=== PATIENT | male | born 1975 | race Caucasian/White ===

== ENCOUNTER 2019-08-17 12:51 | Inpatient (IN) | payer SELFPAY ==
[2019-08-17] VITALS (11 sets, daily range): BP systolic 110–125; BP diastolic 64–85; PULSE 75–108; RESP 16–18; TEMP 37.2; O2SAT 96–100; BMI 27.4
--- NOTE | ~2019-08-17 | US_ITS ---
EXAMINATION: US right upper quadrant DATE: 08/18/2019 17:01 INDICATION: Elevated liver function tests TECHNIQUE: Multiple grayscale and Doppler ultrasound images of the abdomen were obtained. COMPARISON: None available FINDINGS: The head and and body of the pancreas are normal. The pancreatic tail is obscured by bowel gas. The liver is normal with normal echogenicity and echotexture. No surface nodularity. Normal hepa topetal flow in the main portal vein. The gallbladder is normal with no abnormal wall thickening, per icholecystic fluid or stones. The normal common bile duct measures 4 mm. There was no sonographic Mur phy sign. IMPRESSION: 1. Normal sonographic study of the gallbladder. Reviewed, dictated and finalized at location A.
--- NOTE | 2019-08-17 13:32 | ED.OVERDOSE ---
HPI - Overdose General Chief Complaint: Psychiatric Symptoms Stated Complaint: OD GABAPENTIN Time Seen by Provider: 08/17/19 13:26 Source: patient Mode of arrival: EMS Limitations: no limitations History of Present Illness HPI Narrative: Patient is a 44-year-old male presents to the emergency department with complaint of polysubstance overdose. Patient called EMS because he had taken at least 20 600 mg gabapentin tablets throughout the morning. Patient also admits to taking an unknown amount of his hydrocodone as well as Ambien this morning as well. Patient has chronic back pain and was recently put on disability. Patient states he is not able to go back to work and has been feeling very depressed and does not know what to do. Patient is tearful and states he has been feeling very depressed. He denies any prior psychiatric illness or suicide attempts. Patient was trying to harm himself and has been thinking of suicide. complaint: intentional overdose Onset (ago): hour(s) Intent: suicide attempt How Overdose Was Discovered: called 911 Context: Intentional Overdose: other (Medical problems) Associated symptoms: depression Treatments Prior to Arrival: none Related Data Home Medications Medication Instructions Recorded Confirmed gabapentin 600 mg PO TID 08/17/19 08/17/19 hydrocodone-acetaminophen 7.5 - 325 tablet PO Q6H PRN 08/17/19 08/17/19 zolpidem 10 mg PO HS PRN 08/17/19 08/17/19 Allergies Allergy/AdvReac Type Severity Reaction Status Date / Time Penicillins Allergy Unknown Verified 08/17/19 18:11 Review of Systems Review of Systems: All systems reviewed & are unremarkable except as noted in HPI and below PMFSH Past Medical History Medical History (Updated 08/17/19 @ 20:16 by Deborah Diaz MD) Chronic low back pain Chronic prescription opiate use Surgical History Surgical History (Updated 08/17/19 @ 13:42 by Deborah Diaz MD) History of back surgery History of orthopedic surgery Multiple Social History Social History (Updated 08/17/19 @ 16:57 by Tita Guzmán PA-C) Social History: The patient lives in [place], [place]. Smoking status: Never smoker Alcohol intake: unknown Alcohol use details: Infrequent Substance use: never Substance use type: does not use Gender identity (if verbalized by the patient): Male Spiritual care concerns: No Exam Const: General: cooperative, no acute distress and alert Nutritional Appearance: well nourished Orientation/consciousness: patient oriented x3 Limitations: no limitations HENMT: Mouth: Yes lip normal and Yes moist mucous membranes Eyes: Conjunctivae: conjunctivae normal Pupils: Equal, round and reactive pupils present Resp: Effort & Inspection: normal respiratory effort Auscultation: clear to auscultation bilaterally Cardio: Rate: regular rate Rhythm: regular rhythm GI: GI Palp: Yes Soft to palpation and No Tenderness to palpation present (GI) Auscultation: normal bowel sounds Skin: General skin exam: normal color and no rashes or lesions noted Neuro: General: patient oriented x3 Cognition (Neuro): normal cognition Speech: normal speech Extrem: General: normal to inspection, full ROM and no clubbing, cyanosis or edema Psych: Appearance: well kempt Mental Status: mental status grossly normal Affect: Sad affect present (Tearful) Attitude: cooperative Course Course Emergency Course: Patient will be admitted to ICU for polysubstance overdose. Patient's acetaminophen level is not detectable, but he does have elevation of his liver enzymes. Patient was significant amount of his [place] prescription missing which should be a month supply and is now gone after 2 weeks. The same applies to his Ambien prescription. It is unclear when patient may have taken these medications, as he is very vague about how much he took when. Patient does however appear to have taken 24 tablets of gabapentin today which wa
--- NOTE | 2019-08-17 13:33 | ECG_ITS ---
Measurements Intervals [place] Rate: 86 P: 42 UT: 168 QRS: 12 QRSD: 78 T: 50 QT: 343 QTc: 412 Interpretive Statements SINUS RHYTHM NORMAL ECG Electronically Signed On 08-17-2019 13:54:03 CDT by Ranjeet Yeung D.O.
[2019-08-17 13:44] LABS: Basophils Percent Auto 0.7 % (0.2-1.2); Eosinophils Absolute Auto 0.1 K/mm3 (0-0.3); Eosinophils Percent Auto 2.3 % (0-4.4); Hematocrit 42.7 % (42.0-52.0); Hemoglobin 13.9 g/dL (14.0-18.0); Immature Granulocyte Absolute 0.01 K/mm3 (0.00-0.031); Immature Granulocyte Percent A 0.3 % (0-0.5); Lymphocytes Absolute Auto 1.24 K/mm3 (0.9-3.2); Lymphocytes Percent Auto 41.3 % (18.3-44.2); Mean Corpuscular HGB Conc 32.6 g/dl (32-36); Mean Corpuscular Hemoglobin 29.3 pg (26-34); Mean Corpuscular Volume 90.1 fl (80-100); Mean Platelet Volume 9.3 fl (7.4-10.4); Monocytes Absolute Auto 0.4 K/mm3 (0.1-0.6); Neutrophils Absolute Auto 1.3 K/mm3 (1.3-6.7); Neutrophils Percent Auto 42.4 % (45.5-73.1); Platelet Count Result 153 k/mm3 (150-375); Red Blood Count 4.74 M/mm3 (4.6-6.20); Red Cell Distribution Width 14.6 % (11.5-14.5)
--- NOTE | 2019-08-17 13:57 | PC.NURSE ---
1352 called poison control, was told: Gabapentin peaks in 2 hours from ingestion 5-7 hours half-life monitor for [employer] depression overdose is usually well tolerated check APAP, salicylate, renal function treat symptoms with supportive care benzos for seizures as needed Pill count: filled 08/03/19: zolpidem 10 mg- 30 tabs-- none left hydrocodone/APAP 7.5/325 mg- 120 tabs-- none left filled 08/16/19: gabapentin 600 mg- 90 tabs -- 66 left (took 24 today)
[2019-08-17 14:07] LABS: Acetaminophen < 10 ug/mL (10-30); Salicylate < 1.0 mg/dL (2-20)
[2019-08-17 14:08] LABS: Ethanol < 10 mg/dL (<10)
[2019-08-17 14:17] LABS: Albumin Level 4.1 g/dL (3.5-5.1); Alkaline Phosphatase 165 U/L (38-126); Bilirubin,Total 1.1 mg/dL (0.2-1.3); Blood Urea Nitrogen 10 mg/dL (9-20); Calcium 9.2 mg/dL (8.4-10.2); Carbon Dioxide 33 mmol/L (22-30); Chloride 104 mmol/L (98-107); Estimated CRCL calculation 104 ml/min; Estimated Glomerular Filt Rate > 60; Glucose 86 mg/dL (75-110); Potassium 3.8 mmol/L (3.4-5.0); Sodium 142 mmol/L (137-145)
[2019-08-17 14:35] LABS: Thyroid Stimulating Hormone 0.879 uIU/mL (0.465-4.680)
[2019-08-17 14:48] LABS: Add Urine Microscopic? YES; Appearance Urine Clear (Clear); Bilirubin Urine Negative (Negative); Blood Urine Negative (Negative); Color Urine Yellow (Yellow); Glucose Urine UA Negative (Negative); Ketones Urine Negative (Negative); Leukocyte Esterase Ur Negative LEU/UL (Negative); Nitrate Urine Negative (Negative); Protein Urine Negative (Negative); RBC Urine 0-2 /hpf (0-2); Specific Grav Ur 1.012 (1.001-1.035); WBC Urine 0-3 /hpf
[2019-08-17 15:00] LABS: Amphetamine Screen Urine Negative (Negative); Barbiturate Screen Urine Negative (Negative); Benzodiazepines Screen Urine Negative (Negative); Cannabinoid Screen Urine Negative (Negative); Cocaine Screen Urine Negative (Negative); Methadone Screen Urine Negative (Negative); Opiate Screen Urine Negative (Negative); Phencyclidine Screen Urine Negative (Negative)
[2019-08-17 16:19] LABS: Aspartate Amino Transferase 934 U/L (17-59)
[2019-08-17 16:20] LABS: Alanine Aminotransferase 1223 U/L (4-50)
[2019-08-17] MEDS: LACTATED RINGERS 1,000 ML 999 ML IV CONT (16:57)
--- NOTE | 2019-08-17 17:00 | PM.IMHP ---
H&P: HPI History of Present Illness Chief complaint: Intentional overdose. Narrative: Rambo Worley is a 44-year-old male with chronic low back pain who presented to the emergency department earlier today via EMS from home for evaluation of an intentional polysubstance overdose. Over the course of the morning, he admits to taking at least 20, 600 milligram gabapentin tablets in addition to an unknown amount of hydrocodone and zolpidem. He took these medications intentionally in an attempt to harm himself, and he does admit that he has been thinking of suicide recently. With further questioning, it sounds like he has a lot of stressors in his life right now. He and his are currently going through a divorce, and she has not allowed him to see their 2 children, aged 5 and 9 years old. He is worried about the children, and states that their mother is an alcoholic. Since he and his have been , he has been staying with an ex-girlfriend, however he has been staying at a local motel the past 3 nights for unclear reasons. He also suffers from chronic back pain and was recently awarded disability, and that also has him depressed that he is no longer able to work. He goes on to say that he has been thinking about suicide probably for the last 6 months or so. At the time my evaluation his main complaint is of the inability to sleep over the past several days and bifrontal headache. No previous history of suicide attempt. He denies fever, chills, and sweats. No recent cold or flu symptoms. He denies chest pain and shortness of breath. No cough. No recent travel or sick contacts. Review of Systems Review of Systems: Narrative: Twelve systems were reviewed with pertinent positives and negatives as per HPI. Patient had gastric bypass surgery several years ago, going from 340 to 185 pounds. He reports carpal tunnel syndrome of the left hand, and is awaiting surgery for that. No history of liver disease. Denies exposure to hepatitis and concerns for such. Denies ingestion of Tylenol. Does not drink alcohol. Except as documented, all other systems were reviewed and are negative. [facility] Past Medical History Medical History (Updated 08/17/19 @ 22:15 by Tita Guzmán PA-C) Chronic low back pain Related to a work accident. Chronic prescription opiate use Surgical History Surgical History (Updated 08/17/19 @ 22:18 by Tita Guzmán PA-C) History of arthroscopy of left shoulder History of back surgery X5. History of gastric bypass History of hip surgery What sounds like left hip fracture with screws. Family History Family History (Updated 08/17/19 @ 22:15 by Tita Guzmán PA-C) Mother COPD (chronic obstructive pulmonary disease) Father Diabetes mellitus Social History Social History (Updated 08/17/19 @ 22:17 by Tita Guzmán PA-C) Social History: He is originally from [place], but moved to the area with his several years ago. He and his for currently in the middle of a divorce. They have 2 young children, ages 5 and 9. He is a lifelong nonsmoker and denies alcohol and drug use. He was recently put on disability due to chronic back problems and pain related to a work accident. He designates his brother, Patrick Worley, as his surrogate decision maker. Alcohol use details: Infrequent Spiritual care concerns: No Meds Home Medications and Allergies Home Medications Medication Instructions Recorded Confirmed Type gabapentin 600 mg PO TID 08/17/19 08/17/19 History hydrocodone-acetaminophen 7.5 - 325 tablet PO Q6H PRN 08/17/19 08/17/19 History zolpidem 10 mg PO HS PRN 08/17/19 08/17/19 History Allergies Allergy/AdvReac Type Severity Reaction Status Date / Time Penicillins Allergy Unknown Verified 08/17/19 18:11 Vital Signs Vital Signs - 24 hr 08/17/19 12:53 08/17/19 14:00 08/17/19 15:00 Temperature 98.9 F Pulse Rate 108 H 83 76 Respirato
[2019-08-17 17:29] LABS: Creatine Kinase 24 U/L (55-170)
[2019-08-17 17:30] LABS: Partial Thromboplastin Time 29.7 SECONDS (22.3-36.8)
--- NOTE | 2019-08-17 17:38 | ADMGEN ---
This patient, Rambo Worley, was admitted to Intensive Care Unit-7 at 1725. Patient/family oriented to hospital policies and general routines including ID bracelet, bed and alarms, visiting hours, pain management, procedures, bathroom and other care routines, personal items, smoking policy, room service/diet, and visiting hours. Valuables list has been completed. Information on how to activate the Rapid Response Team has been discussed. Patient/Family are encouraged to report perceived risks to care and to ask questions if they do not understand what they are told or what they should do.
[2019-08-17 19:15] LABS: Acetaminophen < 10 ug/mL (10-30)
[2019-08-17 19:44] LABS: Creatine Kinase 23 U/L (55-170)
[2019-08-17 19:55] LABS: HAV RESULT Negative (Negative); Hepatitis B Core IgM Result Negative (Negative); Hepatitis B Surface Antigen Negative (Negative)
[2019-08-17 20:11] LABS: Hepatitis C Virus Antibody Reactive (Negative)
[2019-08-17 20:22] LABS: Partial Thromboplastin Time 27.1 SECONDS (22.3-36.8)
[2019-08-17] MEDS: LACTATED RINGERS 1,000 ML 150 ML IV CONT (20:23)
[2019-08-17 20:37] LABS: Prothrombin Time 13.3 Seconds (11.1-14.7)
[2019-08-17 21:11] LABS: Prothrombin Time 13.2 Seconds (11.1-14.7)
--- NOTE | 2019-08-17 21:45 | PC.NURSE ---
Spoke with poison control. Recommend Acetadote IV. Spoke with Dr. Gonsales. Ashley with Acetadote IV
--- NOTE | 2019-08-17 23:20 | PC.NURSE ---
Patient alert and oriented and cooperative, however refuses to urinate in urinal. Unable to measure voided urine.
[2019-08-18] VITALS (10 sets, daily range): BP systolic 97–128; BP diastolic 68–82; PULSE 69–98; RESP 10–22; TEMP 36.6–36.9; O2SAT 96–100
[2019-08-18 04:48] LABS: Basophils Percent Auto 0.9 % (0.2-1.2); Eosinophils Absolute Auto 0.1 K/mm3 (0-0.3); Eosinophils Percent Auto 2.1 % (0-4.4); Hemoglobin 13.7 g/dL (14.0-18.0); Immature Granulocyte Absolute 0.01 K/mm3 (0.00-0.031); Immature Granulocyte Percent A 0.3 % (0-0.5); Lymphocytes Absolute Auto 1.25 K/mm3 (0.9-3.2); Lymphocytes Percent Auto 38.3 % (18.3-44.2); Mean Corpuscular HGB Conc 32.6 g/dl (32-36); Mean Corpuscular Hemoglobin 29.3 pg (26-34); Mean Corpuscular Volume 89.7 fl (80-100); Mean Platelet Volume 10.1 fl (7.4-10.4); Monocytes Absolute Auto 0.4 K/mm3 (0.1-0.6); Neutrophils Absolute Auto 1.5 K/mm3 (1.3-6.7); Neutrophils Percent Auto 47.4 % (45.5-73.1); Platelet Count Result 160 k/mm3 (150-375); Red Blood Count 4.68 M/mm3 (4.6-6.20); Red Cell Distribution Width 14.4 % (11.5-14.5); White Blood Count 3.3 K/mm3 (4.5-10.0)
[2019-08-18 05:11] LABS: INR 1.1; Prothrombin Time 14.3 Seconds (11.1-14.7)
[2019-08-18 05:12] LABS: Partial Thromboplastin Time 30.7 SECONDS (22.3-36.8)
[2019-08-18 05:14] LABS: Albumin Level 3.8 g/dL (3.5-5.1); Alkaline Phosphatase 131 U/L (38-126); Aspartate Amino Transferase 702 U/L (17-59); Bilirubin,Total 1.2 mg/dL (0.2-1.3); Blood Urea Nitrogen 9 mg/dL (9-20); Calcium 8.7 mg/dL (8.4-10.2); Carbon Dioxide 32 mmol/L (22-30); Chloride 102 mmol/L (98-107); Estimated CRCL calculation 121 ml/min; Estimated Glomerular Filt Rate > 60; Glucose 90 mg/dL (75-110); Potassium 3.5 mmol/L (3.4-5.0); Sodium 141 mmol/L (137-145)
[2019-08-18] MEDS: LACTATED RINGERS 1,000 ML 999 ML IV CONT (08:30)
[2019-08-18 08:59] LABS: Alanine Aminotransferase 1108 U/L (4-50)
--- NOTE | 2019-08-18 10:03 | PC.NURSE ---
Spoke to poison control. Gave vitals and lab values, told to continue antidote drip and obtain CMP at 1730 two hours before drip is off.
--- NOTE | 2019-08-18 10:17 | PM.IMPN ---
Progress Note: A&P Assessment and Plan (1) Intentional overdose of drug in tablet form: Code(s): T50.902A - Poisoning by unspecified drugs, medicaments and biological substances, intentional self-harm, initial encounter Status: Acute Assessment and Plan: Patient admits to taking at least 20 tablets of gabapentin 600mg and dose unknown of hydrocodone and zolpidem. Patient remains hemodynamically stable. Continue telemetry. He denies acetaminophen overdose. Currently on acetylcysteine for possible acetaminophen overdose given his elevated liver enzymes. Continue telemetry. (2) Suicide gesture: Code(s): X83.8XXA - Intentional self-harm by other specified means, initial encounter Status: Acute Assessment and Plan: Patient with history of suicidal ideation but 1st suicide attempt. Continue suicide precautions. Sitter in the room currently. Crisis to evaluate the patient for placement once patient is cleared medically. (3) Major depression: Code(s): F32.9 - Major depressive disorder, single episode, unspecified Status: Acute Assessment and Plan: Patient with major depressive disorder not currently being treated. This will need to be addressed at the psychiatric facility. (4) Transaminasemia: Code(s): R74.0 - Nonspecific elevation of levels of transaminase and lactic acid dehydrogenase [LDH] Status: Acute Assessment and Plan: AST 934 with ALT 1223. Gabapentin does not cause hepatotoxicity. Patient denies acetaminophen use but currently on acetylcysteine for this potential. Total CK level was normal. Denies alcohol use. Liver enzymes are trending downward. Hepatitis-C antibody is positive. Hepatitis-C RNA pending. Following poison control instructions. Check HIV. Right upper quadrant ultrasound ordered a follow-up on this result. Repeat levels slightly higher with AST 752 and ALT 1113; AP 151 now. Poison control called and they recommended repeat acytlcysteine. Subjective Date/time seen: 08/18/19 10:17 Interval history: 44-year-old male here for intentional drug overdose in a suicide attempt. Patient took gabapentin, hydrocodone and Ambien in a suicide attempt. States he has had a marital problems and chronic pain issues. He has had suicidal ideation for a while but this is his 1st suicide attempt. He denies taking excessive Tylenol. He is no longer living at home because of the divorce. He is living at a hotel. He states with he stays with his girlfriend at times. He is on disability. There is also some issue where his ex- would not allow the patient to see his children recently which may have contributed to current events. Patient denies history of IV drug use, needle exposure or other risk factors for hepatitis-C. Exam Narrative: Exam Narrative: Gen - KRISTINED lying almost flat in bed Chest - CTA bilaterally, nml RR CV - RRR S1/S2; telemetry showing no significant dysrhythmias Abd - Soft, NT/ND, Positive BS Ext - No pedal edema. 2+ DP pulses bilaterally. Neuro - Alert and oriented. Nonfocal exam. Psych - Nml mood and affect. Well groomed. Normal eye contact. Skin - Warm and dry Objective Data Vital Signs Vital Signs: Vital Signs - 24 hr 08/17/19 12:53 08/17/19 14:00 08/17/19 15:00 Temperature 98.9 F Pulse Rate 108 H 83 76 Respiratory Rate 16 18 16 Blood Pressure 115/85 110/73 111/66 Pulse Oximetry 100 100 98 08/17/19 16:00 08/17/19 17:18 08/17/19 18:00 Temperature Pulse Rate 90 77 86 Respiratory Rate 18 16 18 Blood Pressure 116/84 116/84 125/85 Pulse Oximetry 100 100 100 08/17/19 18:22 08/17/19 20:00 08/17/19 21:59 Temperature Pulse Rate 77 94 Respiratory Rate 16 Blood Pressure 114/77 Pulse Oximetry 100 96 08/17/19 22:00 08/17/19 23:02 08/18/19 00:00 Temperature Pulse Rate 85 85 91 Respiratory Rate 16 16 15 Blood Pressure 116/64 108/78 Pulse Oximetry 100 100 100
--- NOTE | 2019-08-18 13:18 | WPDCNINT ---
Assessment and Plan Assessment and plan (1) Polysubstance overdose: Qualifiers: Encounter type: initial encounter Injury intent: intentional self-harm Qualified Code(s): T50.902A - Poisoning by unspecified drugs, medicaments and biological substances, intentional self-harm, initial encounter Code(s): T50.901A - Poisoning by unspecified drugs, medicaments and biological substances, accidental (unintentional), initial encounter Status: Acute Assessment and Plan: patient with intentional overdose of gabapentin, hydrocodone, zolpidem. - Is hemodynamically stable, awake, alert, oriented. - He is currently on N acetylcystine which was recommended by poison Control for possible acetaminophen overdose given his elevated liver enzymes. - patient is medically stable, can be downgraded to medical status (2) Suicide gesture: Code(s): X83.8XXA - Intentional self-harm by other specified means, initial encounter Status: Acute Assessment and Plan: patient with history of suicide ideation but this is for suicide attempt. - Continue suicide precautions - sitter at bedside - care coordination and crisis management evaluate the patient once he is off the N-acetylcysteine (3) Major depression: Code(s): F32.9 - Major depressive disorder, single episode, unspecified Status: Acute Assessment and Plan: patient with major depression, will need is inpatient psychiatry (4) Transaminasemia: Code(s): R74.0 - Nonspecific elevation of levels of transaminase and lactic acid dehydrogenase [LDH] Status: Acute Assessment and Plan: transaminitis, nonspecific at this time, Tylenol level x2 negative - poison control recommended starting N-acetylcysteine - CK levels were normal - patient denies any alcohol use. - Liver enzymes are trending down - hepatitis C antibody is positive, hepatitis-C RNA is pending - right upper quadrant ultrasound has been ordered (5) Chronic low back pain: Code(s): M54.5 - Low back pain; G89.29 - Other chronic pain Status: Acute Assessment and Plan: patient with chronic low back pain (6) DVT prophylaxis: Code(s): Z29.9 - Encounter for prophylactic measures, unspecified Status: Acute Assessment and Plan: SCDs Additional Plan discussed with patient updated with his condition and plan of care. He is aware that crisis management will evaluate him once he is medically stable . Code status: Full code Critical care time spent: 37 minutes Due to a high probability of clinically significant, life threatening deterioration, the patient required my highest level of preparedness to intervene emergently and I personally spent this critical care time directly and personally managing the patient. This critical care time included obtaining a history; examining the patient; pulse oximetry; ordering and review of studies; arranging urgent treatment with development of a management plan; evaluation of patient's response to treatment; frequent reassessment; and discussions with other providers. It was exclusive of separately billable procedures and treating other patients and teaching time. Please see Assessment and Plan section and the rest of the note for further information on patient assessment and treatment [employer] Project Coordinator Consult Note Consult date: 08/18/19 Time Seen: 07:08 Reason for consult: INTENTIONAL OVERDOSE HPI: Rambo Worley is a 44 year old male with significant past medical history of chronic low back pain due to work accident, chronic opiate use Presented to the ED on 08/17/2019 from home after evaluation of intentional polysubstance overdose. According the patient he stated that he took, pain 10 600 mg and to 20 pills. Also unknown amount of hydrocodone and zolpidem. Patient admitted to insurance really take these pills to harm himself. Patient has been having a lot of stresses in life is curr
[2019-08-18 18:21] LABS: Albumin Level 4.1 g/dL (3.5-5.1); Alkaline Phosphatase 151 U/L (38-126); Bilirubin,Total 1.3 mg/dL (0.2-1.3); Blood Urea Nitrogen 7 mg/dL (9-20); Calcium 9.2 mg/dL (8.4-10.2); Carbon Dioxide 32 mmol/L (22-30); Chloride 103 mmol/L (98-107); Estimated CRCL calculation 139 ml/min; Estimated Glomerular Filt Rate > 60; Glucose 202 mg/dL (75-110); Potassium 3.8 mmol/L (3.4-5.0); Sodium 141 mmol/L (137-145)
[2019-08-18 18:38] LABS: Alanine Aminotransferase 1113 U/L (4-50); Aspartate Amino Transferase 752 U/L (17-59)
[2019-08-18 18:53] LABS: HIV 1/2 Ab P24 Ag Result Negative (Negative)
--- NOTE | 2019-08-18 19:20 | PC.NURSE ---
Called poison control, liver enzymes continue to go up. Poison control told to give another bag on acetylcystene 8950mg for 16 hours and obtain labs two hours before drip is off tomorrow.
[2019-08-19] VITALS (8 sets, daily range): BP systolic 107–145; BP diastolic 65–86; PULSE 72–107; RESP 16–18; TEMP 36.1–36.9; O2SAT 97–100
[2019-08-19 10:29] LABS: Hematocrit 44.5 % (42.0-52.0); Hemoglobin 14.6 g/dL (14.0-18.0); Mean Corpuscular HGB Conc 32.8 g/dl (32-36); Mean Corpuscular Hemoglobin 29.4 pg (26-34); Mean Corpuscular Volume 89.7 fl (80-100); Mean Platelet Volume 9.9 fl (7.4-10.4); Platelet Count Result 185 k/mm3 (150-375); Red Blood Count 4.96 M/mm3 (4.6-6.20); Red Cell Distribution Width 14.4 % (11.5-14.5); White Blood Count 3.9 K/mm3 (4.5-10.0)
[2019-08-19 10:53] LABS: Albumin Level 4.2 g/dL (3.5-5.1); Alkaline Phosphatase 147 U/L (38-126); Aspartate Amino Transferase 704 U/L (17-59); Bilirubin,Total 1.2 mg/dL (0.2-1.3); Blood Urea Nitrogen 8 mg/dL (9-20); Calcium 9.2 mg/dL (8.4-10.2); Carbon Dioxide 29 mmol/L (22-30); Chloride 104 mmol/L (98-107); Estimated CRCL calculation 139 ml/min; Estimated Glomerular Filt Rate > 60; Glucose 99 mg/dL (75-110); Potassium 3.7 mmol/L (3.4-5.0); Sodium 141 mmol/L (137-145)
[2019-08-19 11:07] LABS: Alanine Aminotransferase 1142 U/L (4-50)
--- NOTE | 2019-08-19 11:17 | PC.NURSE ---
Spoke with poison control and updated on labs and patient condition. Poison control recommends hanging another bag of Acetylcysteine and recheck CMP 2 hours prior to that bag running out
--- NOTE | 2019-08-19 16:14 | PM.IMPN ---
Progress Note: A&P Assessment and Plan (1) Intentional overdose of drug in tablet form: Code(s): T50.902A - Poisoning by unspecified drugs, medicaments and biological substances, intentional self-harm, initial encounter Status: Acute Assessment and Plan: Patient admits to taking at least 20 tablets of gabapentin 600mg and dose unknown of hydrocodone and zolpidem. Patient remains hemodynamically stable. He denies acetaminophen overdose. Currently on acetylcysteine for possible acetaminophen overdose given his elevated liver enzymes. Continue telemetry. (2) Suicide gesture: Code(s): X83.8XXA - Intentional self-harm by other specified means, initial encounter Status: Acute Assessment and Plan: Patient with history of suicidal ideation but 1st suicide attempt. Continue suicide precautions. Sitter in the room currently. Crisis to evaluate the patient for placement once patient is cleared medically. (3) Major depression: Code(s): F32.9 - Major depressive disorder, single episode, unspecified Status: Acute Assessment and Plan: Patient with major depressive disorder not currently being treated. This will need to be addressed at the psychiatric facility. He is remaining calm. (4) Transaminasemia: Code(s): R74.0 - Nonspecific elevation of levels of transaminase and lactic acid dehydrogenase [LDH] Status: Acute Assessment and Plan: AST 934 with ALT 1223 on admission. Gabapentin does not cause hepatotoxicity. Patient denies acetaminophen use but currently on acetylcysteine for this potential. Total CK level was normal. Denies alcohol use. Hepatitis-C antibody is positive and Hepatitis-C RNA pending. HIV negative. Right upper quadrant ultrasound normal. Suspect viral etiology and leukopenia could be related to this. AST dropped to 702 and ALT 1108. However, on repeat levels slightly higher with AST 752 and ALT 1113; AP 151 now. Poison control called and they recommended repeat acetylcysteine. AST 702 and ALT 1142 today so poison control recommended yet another round of acetylcysteine. Check CMV titers Subjective Date/time seen: 08/19/19 16:14 Interval history: 44-year-old male here for intentional drug overdose in a suicide attempt. Patient took gabapentin, hydrocodone and Ambien in a suicide attempt. No problems overnight. Slept poorly but able to sleep earlier today. Eating well. no n/v. Patient denies any exposures to needle sticks or blood products. Exam Narrative: Exam Narrative: Gen - NARD lying almost flat in bed Chest - CTA bilaterally, nml RR CV - RRR S1/S2; telemetry showing occasional sinus tachycardia Abd - Soft, NT/ND, Positive BS Ext - No pedal edema Neuro - Alert and oriented. Nonfocal exam. Psych - Nml mood and affect. Skin - Warm and dry Objective Data Vital Signs Vital Signs: Vital Signs - 24 hr 08/19/19 00:00 08/19/19 07:36 08/19/19 08:00 Temperature 98.4 F 96.9 F L Pulse Rate 84 72 96 Respiratory Rate 16 16 Blood Pressure 127/80 145/86 H Pulse Oximetry 100 98 08/19/19 12:00 08/19/19 15:57 08/19/19 16:00 Temperature Pulse Rate 104 H 77 76 Respiratory Rate 18 Blood Pressure Pulse Oximetry 98 Intake/Output Intake/Output: Intake & Output 08/16/19 08/17/19 08/18/19 08/19/19 23:59 23:59 23:59 23:59 Intake Total 1267 3047.00 1764.75 Output Total 200 Balance 1067 3047.00 1764.75 Meds/Results Medications: Active Medications Generic Name Dose Route Start Last Admin Trade Name Freq PRN Reason Stop Dose Admin Acetylcysteine 8,950 mg/ 1,044.75 mls @ 65.297 mls/hr 08/19/19 12:45 08/19/19 13:03 Dextrose IVPB 08/20/19 04:44 65.3 mls/hr ONCE ONE Administration Radiology Results: ITS Impressions Upper Quadrant Ultrasound 08/18/19 19:21 IMPRESSION: 1. Normal sonographic study of the gallbladder. Labs Labs: Laboratory Results - last
[2019-08-20] VITALS: PULSE 99
[2019-08-20 04:00] VITALS: PULSE 76
[2019-08-20 04:12] LABS: Albumin Level 3.7 g/dL (3.5-5.1); Alkaline Phosphatase 139 U/L (38-126); Aspartate Amino Transferase 639 U/L (17-59); Bilirubin,Total 0.8 mg/dL (0.2-1.3); Blood Urea Nitrogen 9 mg/dL (9-20); Calcium 8.5 mg/dL (8.4-10.2); Carbon Dioxide 31 mmol/L (22-30); Chloride 104 mmol/L (98-107); Estimated CRCL calculation 139 ml/min; Estimated Glomerular Filt Rate > 60; Glucose 96 mg/dL (75-110); Potassium 3.2 mmol/L (3.4-5.0); Sodium 140 mmol/L (137-145)
[2019-08-20 04:16] LABS: Alanine Aminotransferase 1035 U/L (4-50)
--- NOTE | 2019-08-20 04:22 | PC.NURSE ---
Spoke with Laura MONTGOMERY at poison control. Updated on all labs. Recommends additional bag of Acetadote and repeat labs 2 hours prior to end of bag.
--- NOTE | 2019-08-20 06:34 | PC.NURSE ---
Spoke with Laura MONTGOMERY at poison control. Updated on all labs. Recommends additional bag of Acetadote and repeat labs 2 hours prior to end of bag.
[2019-08-20 08:00] VITALS: BP 107/65; PULSE 74; PULSE 76; RESP 18; TEMP 36.8; O2SAT 96
[2019-08-20] MEDS: POTASSIUM CHLORIDE 20 MEQ TABLET PO (09:25)
--- NOTE | 2019-08-20 10:28 | PM.IMPN ---
Progress Note: A&P Assessment and Plan (1) Intentional overdose of drug in tablet form: Code(s): T50.902A - Poisoning by unspecified drugs, medicaments and biological substances, intentional self-harm, initial encounter Status: Acute Assessment and Plan: Patient admits to taking at least 20 tablets of gabapentin 600mg and dose unknown of hydrocodone and zolpidem. Patient remains hemodynamically stable. He denies acetaminophen overdose. Currently on acetylcysteine for possible acetaminophen overdose given his elevated liver enzymes. Okay to stop telemetry (2) Suicide gesture: Code(s): X83.8XXA - Intentional self-harm by other specified means, initial encounter Status: Acute Assessment and Plan: Patient with history of suicidal ideation but this is his 1st suicide attempt. Continue suicide precautions. Sitter in the room currently. Crisis to evaluate the patient for placement once patient is cleared medically. (3) Major depression: Code(s): F32.9 - Major depressive disorder, single episode, unspecified Status: Acute Assessment and Plan: Patient with major depressive disorder not currently being treated. This will need to be addressed at the psychiatric facility. He is remaining calm. (4) Transaminasemia: Code(s): R74.0 - Nonspecific elevation of levels of transaminase and lactic acid dehydrogenase [LDH] Status: Acute Assessment and Plan: AST 934 with ALT 1223 on admission. Gabapentin does not cause hepatotoxicity. Patient denies acetaminophen use but currently on acetylcysteine for this potential. Total CK level was normal. Denies alcohol use. Hepatitis-C antibody is positive and Hepatitis-C RNA pending. HIV negative. Right upper quadrant ultrasound normal. Suspect viral etiology and leukopenia could be related to this. Kratom can cause liver injury but usually a cholestatic or mixed pattern. AST dropped to 702 and ALT 1108. However, on repeat levels slightly higher with AST 752 and ALT 1113; AP 151 now. Poison control called and they recommended repeat acetylcysteine. AST 702 and ALT 1142 yesterday so poison control recommended yet another round of acetylcysteine. CMV titers pending. AST 639 and ALT 1035 which is improved but another round of acetylecysteine. Will consult GI. Subjective Date/time seen: 08/20/19 10:28 Interval history: 44-year-old male here for intentional drug overdose in a suicide attempt. Patient took gabapentin, hydrocodone and Ambien in a suicide attempt. No problems overnight. Feeling better overall. Complains of chronic pain in the back and neuropathy symptoms in the legs. Slept poorly again last night. No n/v. no CP, SOB or cough. Admits to using Kratom everyday. Exam Narrative: Exam Narrative: Gen - NARD sitting up in bed eating breakfast Chest - CTA bilaterally, nml RR CV - RRR S1/S2; telemetry showing no significant dysrhythmias Abd - Soft, NT/ND, Positive BS. No right upper quadrant tenderness Ext - No pedal edema Psych - Nml mood and affect. Skin - Warm and dry Objective Data Vital Signs Vital Signs: Vital Signs - 24 hr 08/19/19 12:00 08/19/19 15:57 08/19/19 16:00 Temperature Pulse Rate 104 H 77 76 Respiratory Rate 18 Blood Pressure Pulse Oximetry 98 08/19/19 20:00 08/19/19 23:52 08/20/19 00:00 Temperature 98.4 F Pulse Rate 107 H 100 99 Respiratory Rate 16 Blood Pressure 107/65 Pulse Oximetry 97 08/20/19 04:00 08/20/19 08:00 Temperature 98.3 F Pulse Rate 76 76 Respiratory Rate 18 Blood Pressure 107/65 Pulse Oximetry 96 Intake/Output Intake/Output: Intake & Output 08/17/19 08/18/19 08/19/19 08/20/19 23:59 23:59 23:59 23:59 Intake Total 1267 3047.00 2244.75 1819.75 Output Total 200 1 Balance 1067 3047.00 2244.75 1818.75 Meds/Results Radiology Results: ITS Impressions Upper Quadrant Ultrasound 08/18/19 19:21 IMPRESSIO
--- NOTE | 2019-08-20 14:33 | WPDGICN ---
Assessment and Plan Assessment and plan (1) Polysubstance overdose: Qualifiers: Encounter type: initial encounter Injury intent: intentional self-harm Qualified Code(s): T50.902A - Poisoning by unspecified drugs, medicaments and biological substances, intentional self-harm, initial encounter Code(s): T50.901A - Poisoning by unspecified drugs, medicaments and biological substances, accidental (unintentional), initial encounter Status: Acute (2) Elevated liver enzymes: Code(s): R74.8 - Abnormal levels of other serum enzymes Status: Acute Assessment and Plan: probably multifactorial from different medications ingested (also had acetaminophen that he has been using as part of hydrocodone- 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 Agree to continue with mucomyst for now by control poison control and monitor liver enzymes. Will get INR to check for synthetic function. Noted HCV ab, pending RNA to confirm HCV- probably he already has liver disease now worsened after acute insult. 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 He is going through a lot of stress at home after lost his job, also divorce, unable to see his sons and decided to ingest of those pills. He was admitted to ICU, poison control recommended IV mucomyst which he is still getting because elevated liver enzymes (900-1200 transaminases, normal bili and platelets). Urine drug screen negative, acetaminophen level normal. RUQ ultrasound normal. HCV Ab positive (denies use of illicitis or previous history of hepatitis), no alcohol use. Now he denies any discomfort, nausea and he is resting in ICU bed. He also has been using Kratom (herbal supplement OTC) for quite sometime. Review of Systems Constitutional: Constitutional: Denies headache(s) and Denies weakness Eyes: Eyes: Denies blurry vision ENT: Reports Normal hearing present, Denies headache(s) and Denies neck pain Cardiovascular: Cardiovascular: Denies chest pain and Denies dyspnea Respiratory: Respiratory: Denies dyspnea Gastrointestinal: Gastrointestinal: Reports no additional gastrointestinal complaints Genitourinary: Genitourinary: Denies dysuria Musculoskeletal: Musculoskeletal: Denies neck pain Integumentary/Breasts: Skin/Breast: Denies dry skin Neurologic: Reports Normal hearing present, Denies headache(s) and Denies weakness Psychiatric: Psychiatric: Reports anxiety, Reports depression and Reports suicidal ideation Endocrine: Endocrine: Denies change in body appearance Hematologic/Lymphatic: Hematologic/Lymphatic: Denies easy bleeding Allergic/Immunologic: Allergic/Immunologic: Denies urticaria PMFSH Past Medical History Medical History (Updated 08/20/19 @ 14:42 by Magen Riddle MD) Chronic low back pain Related to a work accident. Chronic prescription
--- NOTE | 2019-08-20 14:37 | PC.NURSE ---
Spoke with Poison Control, they state patient can finish current bag of acetylsysteine, but presentation is unlikely related to acetaminophen overdose. They would like a call with annetta PATINO, but believe this could be his last bag of acetylsyteine
[2019-08-20 15:59] VITALS: BP 115/70; PULSE 80; RESP 14; TEMP 36.8; O2SAT 100
[2019-08-20 19:29] LABS: INR 1.1; Prothrombin Time 13.9 Seconds (11.1-14.7)
[2019-08-20 19:30] LABS: Partial Thromboplastin Time 29.5 SECONDS (22.3-36.8)
[2019-08-20 19:35] LABS: Albumin Level 3.9 g/dL (3.5-5.1); Alkaline Phosphatase 152 U/L (38-126); Aspartate Amino Transferase 730 U/L (17-59); Bilirubin,Total 1.1 mg/dL (0.2-1.3); Blood Urea Nitrogen 8 mg/dL (9-20); Calcium 8.7 mg/dL (8.4-10.2); Carbon Dioxide 31 mmol/L (22-30); Chloride 104 mmol/L (98-107); Estimated CRCL calculation 121 ml/min; Estimated Glomerular Filt Rate > 60; Glucose 89 mg/dL (75-110); Potassium 3.8 mmol/L (3.4-5.0); Sodium 141 mmol/L (137-145)
[2019-08-20 19:44] LABS: Alanine Aminotransferase 1110 U/L (4-50)
--- NOTE | 2019-08-20 21:06 | PC.NURSE ---
Received call from ar Steward at poison control. Updated on all labs. Per their long distance billing operator they do not recommend additional dose of acetadote. However, pharmacist states that it is technically the treatment for the elevated enzymes.
--- NOTE | 2019-08-20 23:26 | PC.NURSE ---
Addendum entered by Shital Mcneil RN 08/20/19 23:42: This RN also pulled apart patient's bedding, bedside table including drawers, checked pockets on paper scrubs, checked under mattress, bedside trash bag and dinner remains to check for additional pills. Original Note: This RN notified by Steven MONTGOMERYchargeback analyst nurse that a pill was found in patient's bed. Pill was identified as 600 mg of gabapentin. Patient also had in his bed a pierre hooded sweatshirt that was not in the room the previous 2 nights that his RN cared for the patient. When patient was confronted he states that the sweatshirt was there the previous 2 nights and would not answer when asked who retrieved the sweatshirt for him from his belongings bag in the closet. This RN reminded the patient that 2 nights ago the patient's bed was switched out due to mattress error and the sweatshirt was not in the bed at that time nor the previous night. Patient ultimately admits that he grabbed the sweatshirt from the top of the bag in his closet and that the pill must have come from the hoodie. The lock on the closet door was found to be malfunctioning and this RN had maintenance repair the lock and locked the belongings including the sweatshirt in the closet. Hospitalist and warehouse person notified by Steven.
[2019-08-21] VITALS: BP 103/72; PULSE 80; RESP 14; TEMP 36.8; O2SAT 100
[2019-08-21 07:05] LABS: Hematocrit 41.1 % (42.0-52.0); Hemoglobin 13.6 g/dL (14.0-18.0); Mean Corpuscular HGB Conc 33.1 g/dl (32-36); Mean Corpuscular Hemoglobin 29.4 pg (26-34); Platelet Count Result 210 k/mm3 (150-375); Red Blood Count 4.62 M/mm3 (4.6-6.20); Red Cell Distribution Width 14.6 % (11.5-14.5); White Blood Count 4.6 K/mm3 (4.5-10.0)
[2019-08-21 07:21] LABS: INR 1.1; Prothrombin Time 14.3 Seconds (11.1-14.7)
[2019-08-21 07:49] LABS: Albumin Level 3.6 g/dL (3.5-5.1); Alkaline Phosphatase 155 U/L (38-126); Bilirubin,Total 1.3 mg/dL (0.2-1.3); Blood Urea Nitrogen 9 mg/dL (9-20); Calcium 8.8 mg/dL (8.4-10.2); Carbon Dioxide 31 mmol/L (22-30); Chloride 106 mmol/L (98-107); Estimated CRCL calculation 121 ml/min; Estimated Glomerular Filt Rate > 60; Glucose 89 mg/dL (75-110); Potassium 3.6 mmol/L (3.4-5.0); Sodium 140 mmol/L (137-145)
[2019-08-21 07:56] LABS: Aspartate Amino Transferase 764 U/L (17-59)
[2019-08-21 07:57] LABS: Alanine Aminotransferase 1140 U/L (4-50)
[2019-08-21 08:00] VITALS: BP 102/67; PULSE 86; RESP 20; TEMP 36.9; O2SAT 100
--- NOTE | 2019-08-21 11:03 | PM.IMPN ---
Progress Note: A&P Assessment and Plan (1) Intentional overdose of drug in tablet form: Code(s): T50.902A - Poisoning by unspecified drugs, medicaments and biological substances, intentional self-harm, initial encounter Status: Acute Assessment and Plan: Patient admits to taking at least 20 tablets of gabapentin 600mg and dose unknown of hydrocodone/Acetaminophen and zolpidem. Patient remains hemodynamically stable. He denies acetaminophen overdose. Treated with acetylcysteine for possible acetaminophen overdose given his elevated liver enzymes. Overall, patient appears to have recovered well. (2) Suicide gesture: Code(s): X83.8XXA - Intentional self-harm by other specified means, initial encounter Status: Acute Assessment and Plan: Patient with history of suicidal ideation but this is his 1st suicide attempt. Continue suicide precautions. Sitter in the room currently. Crisis to evaluate the patient for placement once patient is cleared medically. (3) Major depression: Code(s): F32.9 - Major depressive disorder, single episode, unspecified Status: Acute Assessment and Plan: Patient with major depressive disorder not currently being treated. This will need to be addressed at the psychiatric facility. He is remaining calm. (4) Transaminasemia: Code(s): R74.0 - Nonspecific elevation of levels of transaminase and lactic acid dehydrogenase [LDH] Status: Acute Assessment and Plan: AST 934 with ALT 1223 on admission. Gabapentin does not cause hepatotoxicity. Patient denies acetaminophen overdose but treated with multiple rounds of acetylcysteine for this potential with minimal change. Total CK level was normal. Denies alcohol use. Hepatitis-C antibody is positive and Hepatitis-C RNA pending. HIV negative. Right upper quadrant ultrasound normal. Suspect viral etiology and leukopenia could be related to this. Uses Kratom daily and it can cause liver injury and usually a cholestatic or mixed pattern. AST dropped to 700 range and has remained stable. ALT has dropped 1100 and stable. AP mildly elevated in the 150 range; Bili remains normal. CMV titers pending. Ammonia negative. CRP and iron normal. Appreciate GI input. If the expectation that this isn't going to change much, then clear for discharge if okay with GI. Subjective Date/time seen: 08/21/19 11:03 Interval history: 44-year-old male here for intentional drug overdose taking gabapentin, hydrocodone/Acetam and Ambien in a suicide attempt. Slept well last night. Eating normally. Some mild abdominal pain after eating but he does have a history of gastric bypass so this symptom is not uncommon. He denies any chest pain, shortness of breath or cough. No issues overnight per nursing staff. Exam Narrative: Exam Narrative: Gen - CARMINA lying flat in bed Chest - CTA bilaterally, nml RR CV - RRR S1/S2 Abd - Soft, NT/ND, Positive BS. No right upper quadrant tenderness Ext - No pedal edema Psych - Nml mood and affect. Skin - Warm and dry Objective Data Vital Signs Vital Signs: Vital Signs - 24 hr 08/20/19 15:59 08/21/19 00:00 08/21/19 08:00 Temperature 98.2 F 98.2 F 98.4 F Pulse Rate 80 80 86 Respiratory Rate 14 14 20 Blood Pressure 115/70 103/72 102/67 Pulse Oximetry 100 100 100 Intake/Output Intake/Output: Intake & Output 08/18/19 08/19/19 08/20/19 08/21/19 23:59 23:59 23:59 23:59 Intake Total 3047.00 2244.75 4028.50 670 Output Total 1 Balance 3047.00 2244.75 4027.50 670 Meds/Results Radiology Results: ITS Impressions Upper Quadrant Ultrasound 08/18/19 19:21 IMPRESSION: 1. Normal sonographic study of the gallbladder. Labs Labs: Laboratory Results - last 24 hr 08/17/19 08/17/19 08/17/19 13:33 13:33 13:33 WBC 3.0 L RBC 4.74 Hgb 13.9 L Hct 42.7 MCV 90.1 MCH 29.3 MCHC 32.6 RDW 14.6 H Plt Count 153 MPV
[2019-08-21 12:06] LABS: Ammonia < 9 umol/L (9-30)
[2019-08-21 12:11] LABS: CRP 0.7 mg/dL (<1.0)
[2019-08-21 12:38] LABS: Iron 146 ug/dL (49-181)
[2019-08-21 12:47] LABS: Percent Iron Saturation 38 % (20-50)
--- NOTE | 2019-08-21 12:50 | WPDGIPROGNO ---
Progress Note: A&P Assessment and Plan (1) Elevated liver enzymes: Code(s): R74.8 - Abnormal levels of other serum enzymes Status: Acute Assessment and Plan: probably due to ingestion of different drugs including the use of hydrocodone/acetaminophen that he takes chronically for which he already received mucomyst for almost 3 days. unknown baseline liver enzymes, it seems that he has also HCV- awaiting on RNA (probably had acute on chronic liver disease from acute ingestion), had normal liver ultrasound inr, creatinine and bilirubin normal, no acidosis, no encephalopathy. trend liver enzymes, most likely will take long time to recover (2) Polysubstance overdose: Qualifiers: Encounter type: initial encounter Injury intent: intentional self-harm Qualified Code(s): T50.902A - Poisoning by unspecified drugs, medicaments and biological substances, intentional self-harm, initial encounter Code(s): T50.901A - Poisoning by unspecified drugs, medicaments and biological substances, accidental (unintentional), initial encounter Status: Acute (3) Hepatitis C antibody positive in blood: Code(s): R76.8 - Other specified abnormal immunological findings in serum Status: Acute Assessment and Plan: awaiting on RNA (4) Suicide attempt: Code(s): T14.91XA - Suicide attempt, initial encounter Status: Acute Assessment and Plan: sitter at bedside, by primary team (5) Chronic low back pain: Code(s): M54.5 - Low back pain; G89.29 - Other chronic pain Status: Acute Subjective Date/time seen: 08/21/19 12:50 Interval history: no new events, he has chronic back pain but good appetite, no nausea. Review of Systems Review of Systems: All systems reviewed & are unremarkable except as noted in HPI and below Exam Const: General: comfortable and no acute distress HENMT: General nose exam: Normal nares present Eyes: General: appearance normal, both eyes and all related structures Neck: Neck: no JVD Resp: Auscultation: clear to auscultation bilaterally Cardio: Rate: regular rate Rhythm: regular rhythm GI: Inspection: non-distended GI Palp: Yes Soft to palpation Skin: General skin exam: normal color Neuro: General: gait normal Speech: normal speech Extrem: General: normal to inspection Psych: Mental Status: mental status grossly normal Objective Data Vital Signs Vital Signs: Vital Signs - 24 hr 08/20/19 15:59 08/21/19 00:00 08/21/19 08:00 Temperature 98.2 F 98.2 F 98.4 F Pulse Rate 80 80 86 Respiratory Rate 14 14 20 Blood Pressure 115/70 103/72 102/67 Pulse Oximetry 100 100 100 Intake/Output Intake/Output: Intake & Output 08/18/19 08/19/19 08/20/19 08/21/19 23:59 23:59 23:59 23:59 Intake Total 3047.00 2244.75 4028.50 670 Output Total 1 Balance 3047.00 2244.75 4027.50 670 Meds/Results Radiology Results: ITS Impressions Upper Quadrant Ultrasound 08/18/19 19:21 IMPRESSION: 1. Normal sonographic study of the gallbladder. Labs Labs: Laboratory Results - last 24 hr 08/17/19 08/17/19 08/17/19 13:33 13:33 13:33 WBC 3.0 L RBC 4.74 Hgb 13.9 L Hct 42.7 MCV 90.1 MCH 29.3 MCHC 32.6 RDW 14.6 H Plt Count 153 MPV 9.3 Immature Gran % (Auto) 0.3 Neut % (Auto) 42.4 L Lymph % (Auto) 41.3 Whitley % (Auto) 13.0 H Eos % (Auto) 2.3 Baso % (Auto) 0.7 Lymph # (Auto) 1.24 Whitley # (Auto) 0.4 Eos # (Auto) 0.1 Baso # (Auto) 0.0 Abs Immat Gran (auto) 0.01 Absolute Neuts (auto) 1.3 Absolute Nucleated RBC 0.0 Nucleated RBC % 0.0 PT INR APTT Sodium 142 Potassium 3.8 Chloride 104 Carbon Dioxide 33 H BUN 10 Creatinine 0.80 Estim Creat Clear Calc 104 Estimated GFR > 60 Glucose 86 Calcium 9.2 Iron TIBC Total Bilirubin 1.1 AST 934 H ALT 1223 H Alkaline Phosphatase 165 H Ammonia C
[2019-08-21 13:25] LABS: Hepatitis B Surface Anti Res Negative
[2019-08-21 16:00] VITALS: BP 105/74; PULSE 88; RESP 20; TEMP 36.8; O2SAT 100
[2019-08-21 20:00] VITALS: PULSE 75; RESP 14; O2SAT 100
[2019-08-21 21:38] VITALS: BP 109/78; PULSE 73; RESP 14; TEMP 36.9; O2SAT 100
[2019-08-22 05:22] LABS: Albumin Level 3.6 g/dL (3.5-5.1); Alkaline Phosphatase 152 U/L (38-126); Bilirubin,Total 1.4 mg/dL (0.2-1.3); Blood Urea Nitrogen 8 mg/dL (9-20); Calcium 8.8 mg/dL (8.4-10.2); Carbon Dioxide 31 mmol/L (22-30); Chloride 105 mmol/L (98-107); Estimated CRCL calculation 121 ml/min; Estimated Glomerular Filt Rate > 60; Glucose 142 mg/dL (75-110); Potassium 3.4 mmol/L (3.4-5.0); Sodium 139 mmol/L (137-145)
[2019-08-22 05:42] LABS: Alanine Aminotransferase 1236 U/L (4-50); Aspartate Amino Transferase 854 U/L (17-59)
[2019-08-22 08:00] VITALS: BP 108/108; PULSE 70; RESP 20; TEMP 36.8; O2SAT 100
--- NOTE | 2019-08-22 09:08 | PM.IMPN ---
Progress Note: A&P Assessment and Plan (1) Intentional overdose of drug in tablet form: Code(s): T50.902A - Poisoning by unspecified drugs, medicaments and biological substances, intentional self-harm, initial encounter Status: Acute Assessment and Plan: Patient admits to taking at least 20 tablets of gabapentin 600mg and dose unknown of hydrocodone/acetaminophen and zolpidem. Treated with acetylcysteine for possible acetaminophen overdose given his elevated liver enzymes although acetaminophen level < 10 x 2. Presently he is stable. Following LFTs as noted below. Will need eventual crisis evaluation and psychiatric placement. (2) Suicide gesture: Qualifiers: Encounter type: initial encounter Qualified Code(s): X83.8XXA - Intentional self-harm by other specified means, initial encounter Code(s): X83.8XXA - Intentional self-harm by other specified means, initial encounter Status: Acute Assessment and Plan: Patient with history of suicidal ideation but this is his 1st suicide attempt. Continue suicide precautions. Sitter remains in room. Plan for crisis evaluation and eventual psychiatric placement. (3) Major depression: Qualifiers: Major depression recurrence: unspecified whether recurrent Active/Remission status: currently active Major depression episode severity: severe Psychotic features: without psychotic features Qualified Code(s): F32.2 - Major depressive disorder, single episode, severe without psychotic features Code(s): F32.9 - Major depressive disorder, single episode, unspecified Status: Acute Assessment and Plan: Patient with major depressive disorder not currently being treated. Multiple stressors. Will need psychiatric evaluation and placement. (4) Transaminasemia: Code(s): R74.0 - Nonspecific elevation of levels of transaminase and lactic acid dehydrogenase [LDH] Status: Acute Assessment and Plan: Appreciate help from GI. LFTs remain elevated with AST 854 today and ALT 1236 today. LFTs have fluctuated while in hospital. Does use OTC products including Kratom and [employer]. Hepatitis C antibody positive with HCV RNA still pending. RUQ ultrasound normal. Will continue to monitor LFTs. Once okay with GI, should be medically clear for psychiatric evaluations. (5) Hepatitis C antibody positive in blood: Code(s): R76.8 - Other specified abnormal immunological findings in serum Status: Acute Assessment and Plan: Hepatitis C antibody reactive with HCV RNA pending. LFTs as noted above. (6) Chronic low back pain: Qualifiers: Back pain laterality: unspecified Sciatica presence: unspecified whether sciatica present Qualified Code(s): M54.5 - Low back pain; G89.29 - Other chronic pain Code(s): M54.5 - Low back pain; G89.29 - Other chronic pain Status: Acute Assessment and Plan: Might have considered restarting lower dose of gabapentin but he did admit to taking in overdose on admission and thus, hesitant to restart. Other options not good given his elevated LFTs as well as psychiatric issues. Can try Lidoderm patch to his back to see if this provides any relief. (7) DVT prophylaxis: Code(s): Z29.9 - Encounter for prophylactic measures, unspecified Status: Acute Assessment and Plan: SCDs. Time Spent With Patient Time with patient: 15 - 25 minutes Subjective Date/time seen: 08/22/19 09:08 Interval history: Date of Service: 08/22/2019. Admitted with intentional overdose of gabapentin, hydrcodone/acetaminophen and zolpidem. Complains of generalized pain with known chronic pain. Feels frustrated as he states he has several things that need to get done outside of the hospital. No chest pain. No shortness of breath. No abdominal pain. Review of Systems Constitutional: Constitutional: Denies chills and Denies fever(s) Eyes: Eyes: Rep
[2019-08-22] MEDS: LIDOCAINE 5% PATCH 1 PATCH TRANSDERM (11:37)
--- NOTE | 2019-08-22 15:19 | WPDGIPROGNO ---
Progress Note: A&P Assessment and Plan (1) Elevated liver enzymes: Code(s): R74.8 - Abnormal levels of other serum enzymes Status: Acute Assessment and Plan: probably from overdose (patient received mucomyst IV for almost 3 days)- synthetic function is normal (inr, albumin), also renal function and he is comfortable. He also has been using herbal supplements (kratom) most likely acute on chronic (it seems that he also has HCV, awaiting RNA to confirm) but regardless will take time to recover (2) Polysubstance overdose: Qualifiers: Encounter type: initial encounter Injury intent: intentional self-harm Qualified Code(s): T50.902A - Poisoning by unspecified drugs, medicaments and biological substances, intentional self-harm, initial encounter Code(s): T50.901A - Poisoning by unspecified drugs, medicaments and biological substances, accidental (unintentional), initial encounter Status: Acute Assessment and Plan: patient will need psych evaluation (3) Suicide attempt: Code(s): T14.91XA - Suicide attempt, initial encounter Status: Acute (4) Hepatitis C antibody positive in blood: Code(s): R76.8 - Other specified abnormal immunological findings in serum Status: Acute Subjective Date/time seen: 08/22/19 15:19 Interval history: comfortable, tolerating diet. His only complain is insomnia and numbness legs (chronic) Review of Systems Review of Systems: All systems reviewed & are unremarkable except as noted in HPI and below Exam Const: General: comfortable and no acute distress HENMT: General nose exam: Normal nares present Eyes: General: appearance normal, both eyes and all related structures Neck: Neck: no JVD Resp: Auscultation: clear to auscultation bilaterally Cardio: Rate: regular rate Rhythm: regular rhythm GI: Inspection: non-distended GI Palp: Yes Soft to palpation Skin: General skin exam: normal color Neuro: General: gait normal Speech: normal speech Extrem: General: normal to inspection Psych: Mental Status: mental status grossly normal Objective Data Vital Signs Vital Signs: Vital Signs - 24 hr 08/21/19 16:00 08/21/19 20:00 08/21/19 21:38 Temperature 98.2 F 98.4 F Pulse Rate 88 75 73 Respiratory Rate 20 14 14 Blood Pressure 105/74 109/78 Pulse Oximetry 100 100 100 08/22/19 08:00 Temperature 98.3 F Pulse Rate 70 Respiratory Rate 20 Blood Pressure 108/108 H Pulse Oximetry 100 Intake/Output Intake/Output: Intake & Output 08/19/19 08/20/19 08/21/19 08/22/19 23:59 23:59 23:59 23:59 Intake Total 2244.75 4028.50 910 710 Output Total 1 Balance 2244.75 4027.50 910 710 Meds/Results Medications: Active Medications Generic Name Dose Route Start Last Admin Trade Name Freq PRN Reason Stop Dose Admin Lidocaine 1 patch 08/22/19 09:40 08/22/19 11:37 Lidoderm TRANSDERM 1 patch DAILY RICHARD Administration Radiology Results: ITS Impressions Upper Quadrant Ultrasound 08/18/19 19:21 IMPRESSION: 1. Normal sonographic study of the gallbladder. Labs Labs: Laboratory Results - last 24 hr 08/22/19 04:18 Sodium 139 Potassium 3.4 Chloride 105 Carbon Dioxide 31 H BUN 8 L Creatinine 0.70 Estim Creat Clear Calc 121 Estimated GFR > 60 Glucose 142 H Calcium 8.8 Total Bilirubin 1.4 H AST 854 H ALT 1236 H Alkaline Phosphatase 152 H Total Protein 6.0 L Albumin 3.6
[2019-08-22 16:00] VITALS: BP 125/82; PULSE 74; TEMP 36.8; O2SAT 100
[2019-08-22 20:00] VITALS: PULSE 80; RESP 18; O2SAT 100
[2019-08-22 20:35] VITALS: BP 109/73; PULSE 77; RESP 18; TEMP 37.1; O2SAT 100
[2019-08-23] VITALS: BP 89/61; PULSE 78; RESP 18; TEMP 36.7; O2SAT 98
[2019-08-23 02:25] LABS: Hepatitis B Core Ab Total Nonreactive (Nonreactive)
[2019-08-23 05:44] LABS: Albumin Level 3.8 g/dL (3.5-5.1); Alkaline Phosphatase 161 U/L (38-126); Bilirubin,Total 1.8 mg/dL (0.2-1.3); Blood Urea Nitrogen 9 mg/dL (9-20); Calcium 9.1 mg/dL (8.4-10.2); Carbon Dioxide 34 mmol/L (22-30); Chloride 103 mmol/L (98-107); Estimated CRCL calculation 136 ml/min; Estimated Glomerular Filt Rate > 60; Glucose 132 mg/dL (75-110); Potassium 3.6 mmol/L (3.4-5.0); Sodium 140 mmol/L (137-145)
[2019-08-23 05:50] LABS: Alanine Aminotransferase 1484 U/L (4-50); Aspartate Amino Transferase 965 U/L (17-59)
[2019-08-23 08:00] VITALS: BP 112/78; PULSE 72; RESP 18; TEMP 36.8; O2SAT 95
--- NOTE | 2019-08-23 08:54 | PM.IMPN ---
Progress Note: A&P Assessment and Plan (1) Intentional overdose of drug in tablet form: Code(s): T50.902A - Poisoning by unspecified drugs, medicaments and biological substances, intentional self-harm, initial encounter Status: Acute Assessment and Plan: Patient admits to taking at least 20 tablets of gabapentin 600mg and dose unknown of hydrocodone/acetaminophen and zolpidem. Treated with acetylcysteine for possible acetaminophen overdose given his elevated liver enzymes although acetaminophen level < 10 x 2. Remains hemodynamically stable. Following LFTs as noted below. Will need eventual crisis evaluation and psychiatric placement. (2) Suicide gesture: Qualifiers: Encounter type: initial encounter Qualified Code(s): X83.8XXA - Intentional self-harm by other specified means, initial encounter Code(s): X83.8XXA - Intentional self-harm by other specified means, initial encounter Status: Acute Assessment and Plan: Patient with history of suicidal ideation but this is his 1st suicide attempt. Continue suicide precautions. Sitter remains in room. Plan for crisis evaluation and eventual psychiatric placement. (3) Major depression: Qualifiers: Major depression recurrence: unspecified whether recurrent Active/Remission status: currently active Major depression episode severity: severe Psychotic features: without psychotic features Qualified Code(s): F32.2 - Major depressive disorder, single episode, severe without psychotic features Code(s): F32.9 - Major depressive disorder, single episode, unspecified Status: Acute Assessment and Plan: Patient with major depressive disorder not currently being treated. Multiple stressors. Will need psychiatric evaluation as noted above. (4) Transaminasemia: Code(s): R74.0 - Nonspecific elevation of levels of transaminase and lactic acid dehydrogenase [LDH] Status: Acute Assessment and Plan: Appreciate help from GI. LFTs remain elevated with AST increased to 965 today and ALT 1484 today. Total bilirubin also slightly higher at 1.8 today. Does admit to using OTC products including Kratom and Monster Drinks. Hepatitis C antibody positive with HCV RNA still pending. RUQ ultrasound normal. Will continue to monitor LFTs. Will need clearance from GI before medical clearance to proceed with crisis evaluation. (5) Hepatitis C antibody positive in blood: Code(s): R76.8 - Other specified abnormal immunological findings in serum Status: Acute Assessment and Plan: Hepatitis C antibody reactive with HCV RNA pending. LFTs as noted above. (6) Chronic low back pain: Qualifiers: Back pain laterality: unspecified Sciatica presence: unspecified whether sciatica present Qualified Code(s): M54.5 - Low back pain; G89.29 - Other chronic pain Code(s): M54.5 - Low back pain; G89.29 - Other chronic pain Status: Acute Assessment and Plan: With patient having taken extra doses of gabapentin, I am not comfortable restarting that medication to help with his chronic back pain at this time. Will still have lidocaine patch available if he wishes to use. Treatment options currently limited given the overdose and elevated LFTs. (7) DVT prophylaxis: Code(s): Z29.9 - Encounter for prophylactic measures, unspecified Status: Acute Assessment and Plan: SCDs. Time Spent With Patient Time with patient: 15 - 25 minutes Subjective Date/time seen: 08/23/19 08:54 Interval history: Date of Service: 08/23/2019. Admitted with intentional overdose of gabapentin, hydrocodone/acetaminophen and zolpidem. Reports no improvement in pain with use of lidocaine patch yesterday. Still wants to leave. No abdominal pain, nausea or vomiting. No chest pain or shortness of breath. Review of Systems Constitutional: Constitutional: Denies chills and Denies fever(s) ENT:
[2019-08-23] MEDS: LIDOCAINE 5% PATCH 1 PATCH TRANSDERM (09:30)
[2019-08-23 16:00] VITALS: BP 112/76; PULSE 81; RESP 16; O2SAT 99
--- NOTE | 2019-08-23 16:36 | WPDGIPROGNO ---
Progress Note: A&P Assessment and Plan (1) Elevated liver enzymes: Code(s): R74.8 - Abnormal levels of other serum enzymes Status: Acute Assessment and Plan: bili 1.8 today, continue to trend he received mucomyst iv multifactorial as discussed previously continue to trend lft's, when stable probably he can be moved to psych facility (2) Polysubstance overdose: Qualifiers: Encounter type: initial encounter Injury intent: intentional self-harm Qualified Code(s): T50.902A - Poisoning by unspecified drugs, medicaments and biological substances, intentional self-harm, initial encounter Code(s): T50.901A - Poisoning by unspecified drugs, medicaments and biological substances, accidental (unintentional), initial encounter Status: Acute (3) Hepatitis C antibody positive in blood: Code(s): R76.8 - Other specified abnormal immunological findings in serum Status: Acute Assessment and Plan: pending hcv rna (4) Suicide attempt: Code(s): T14.91XA - Suicide attempt, initial encounter Status: Acute (5) Transaminasemia: Code(s): R74.0 - Nonspecific elevation of levels of transaminase and lactic acid dehydrogenase [LDH] Status: Acute Subjective Date/time seen: 08/23/19 16:36 Interval history: he is comfortable, just anxious because insomnia. no new events Review of Systems Review of Systems: All systems reviewed & are unremarkable except as noted in HPI and below Exam Narrative: Exam Narrative: Awake and alert. Const: General: no acute distress HENMT: Mouth: Yes moist mucous membranes Neck: Neck: supple Lymphatic: lymphadenopathy not noted Resp: Auscultation: clear to auscultation bilaterally, no rales and no wheezes Cardio: Rate: regular rate Rhythm: regular rhythm GI: Inspection: non-distended GI Palp: Yes Soft to palpation and No Tenderness to palpation present (GI) Auscultation: normal bowel sounds Skin: General skin exam: normal color Neuro: General: No confusion Cognition (Neuro): normal cognition Speech: normal speech Extrem: General: no edema Psych: Mental Status: mental status grossly normal Speech and movement: Clear speech present Attitude: not belligerent Insight: Poor insight present (Psych) Judgement: Poor judgement present (Psych) Objective Data Vital Signs Vital Signs: Vital Signs - 24 hr 08/22/19 20:00 08/22/19 20:35 08/23/19 00:00 Temperature 98.7 F 98.1 F Pulse Rate 80 77 78 Respiratory Rate 18 18 18 Blood Pressure 109/73 89/61 L Pulse Oximetry 100 100 98 08/23/19 08:00 Temperature 98.2 F Pulse Rate 72 Respiratory Rate 18 Blood Pressure 112/78 Pulse Oximetry 95 Intake/Output Intake/Output: Intake & Output 08/20/19 08/21/19 08/22/19 08/23/19 23:59 23:59 23:59 23:59 Intake Total 4028.50 910 1010 1000 Output Total 1 600 Balance 4027.50 920 991 1267 Meds/Results Medications: Active Medications Generic Name Dose Route Start Last Admin Trade Name Freq PRN Reason Stop Dose Admin Lidocaine 1 patch 08/22/19 09:40 08/23/19 09:30 Lidoderm TRANSDERM 1 patch DAILY RICHARD Administration Radiology Results: ITS Impressions Upper Quadrant Ultrasound 08/18/19 19:21 IMPRESSION: 1. Normal sonographic study of the gallbladder. Labs Labs: Laboratory Results - last 24 hr 08/21/19 08/23/19 11:44 04:45 Sodium 140 Potassium 3.6 Chloride 103 Carbon Dioxide 34 H BUN 9 Creatinine 0.70 Estim Creat Clear Calc 136 Estimated GFR > 60 Glucose 132 H Calcium 9.1 Total Bilirubin 1.8 H AST 965 H ALT 1484 H Alkaline Phosphatase 161 H Total Protein 6.0 L Albumin 3.8 Hep B Core Total Ab Nonreactive
[2019-08-24] VITALS: BP 122/84; PULSE 84; RESP 20; TEMP 36.3; O2SAT 99
[2019-08-24 01:37] LABS: Actin Antibody (IgG) <20 U (<20); Ceruloplasmin 28 mg/dL (18-36); Mitochondrial (M2) Ab (IgG) <=20.0 U (<=20.0)
[2019-08-24 05:18] LABS: Alanine Aminotransferase 1603 U/L (4-50); Albumin Level 3.9 g/dL (3.5-5.1); Alkaline Phosphatase 184 U/L (38-126); Aspartate Amino Transferase 995 U/L (17-59); Bilirubin,Total 2.1 mg/dL (0.2-1.3); Blood Urea Nitrogen 9 mg/dL (9-20); Calcium 8.9 mg/dL (8.4-10.2); Carbon Dioxide 28 mmol/L (22-30); Chloride 105 mmol/L (98-107); Estimated CRCL calculation 156 ml/min; Estimated Glomerular Filt Rate > 60; Glucose 88 mg/dL (75-110); Sodium 140 mmol/L (137-145)
[2019-08-24 08:00] VITALS: BP 122/76; PULSE 81; RESP 14; TEMP 36.7; O2SAT 92
--- NOTE | 2019-08-24 09:01 | PM.IMPN ---
Progress Note: A&P Assessment and Plan (1) Intentional overdose of drug in tablet form: Code(s): T50.902A - Poisoning by unspecified drugs, medicaments and biological substances, intentional self-harm, initial encounter Status: Acute Assessment and Plan: Patient admits to taking at least 20 tablets of gabapentin 600mg and dose unknown of hydrocodone/acetaminophen and zolpidem. Treated with acetylcysteine for possible acetaminophen overdose given his elevated liver enzymes although acetaminophen level < 10 x 2. Remains hemodynamically stable on review on 08/24/2019. Following LFTs as noted below. Will need eventual crisis evaluation and psychiatric placement once cleared by GI. (2) Suicide gesture: Qualifiers: Encounter type: initial encounter Qualified Code(s): X83.8XXA - Intentional self-harm by other specified means, initial encounter Code(s): X83.8XXA - Intentional self-harm by other specified means, initial encounter Status: Acute Assessment and Plan: Patient with history of suicidal ideation but this is his 1st suicide attempt. Will continue suicide precautions. Sitter remains in room. Plan for crisis evaluation and eventual psychiatric placement. (3) Major depression: Qualifiers: Active/Remission status: currently active Major depression episode severity: severe Major depression recurrence: unspecified whether recurrent Psychotic features: without psychotic features Qualified Code(s): F32.2 - Major depressive disorder, single episode, severe without psychotic features Code(s): F32.9 - Major depressive disorder, single episode, unspecified Status: Acute Assessment and Plan: Patient with major depressive disorder not currently being treated. Multiple stressors. Will need psychiatric evaluation as noted above. (4) Transaminasemia: Code(s): R74.0 - Nonspecific elevation of levels of transaminase and lactic acid dehydrogenase [LDH] Status: Acute Assessment and Plan: Appreciate help from GI. LFTs remain elevated with AST increased to 995 today and ALT 1603 today. Total bilirubin higher again at 2.1 today. Does admit to using OTC products including Kratom and [employer] Drinks. Hepatitis C antibody positive with HCV RNA results still pending. RUQ ultrasound normal. Will continue to monitor LFTs. Await stabilization of LFTs in order to have GI clearance. Will need GI clearance before able to have crisis evaluation. (5) Hepatitis C antibody positive in blood: Code(s): R76.8 - Other specified abnormal immunological findings in serum Status: Acute Assessment and Plan: Hepatitis C antibody reactive with HCV RNA still pending as noted above. LFTs as noted above. (6) Chronic low back pain: Qualifiers: Back pain laterality: unspecified Sciatica presence: unspecified whether sciatica present Qualified Code(s): M54.5 - Low back pain; G89.29 - Other chronic pain Code(s): M54.5 - Low back pain; G89.29 - Other chronic pain Status: Acute Assessment and Plan: With patient having taken extra doses of gabapentin, I am not comfortable restarting that medication to help with his chronic back pain at this time. Continue lidocaine patch. Treatment options currently limited given the overdose and elevated LFTs. Will monitor. (7) DVT prophylaxis: Code(s): Z29.9 - Encounter for prophylactic measures, unspecified Status: Acute Assessment and Plan: SCDs. Time Spent With Patient Time with patient: 15 - 25 minutes Subjective Date/time seen: 08/24/19 09:01 Interval history: Date of Service: 08/24/2019. Admitted with intentional overdose of gabapentin, hydrocodone/acetaminophen and zolpidem. No new issues overnight. No abdominal pain. No nausea or vomiting. No chest pain. No shortness of breath. Remains frustrated as still in hospital. Review of Systems Constitutional: C
[2019-08-24] MEDS: LIDOCAINE 5% PATCH 1 PATCH TRANSDERM (10:19)
--- NOTE | 2019-08-24 14:44 | WPDGIPROGNO ---
Progress Note: A&P Assessment and Plan (1) Elevated liver enzymes: Code(s): R74.8 - Abnormal levels of other serum enzymes Status: Acute Assessment and Plan: bili 2 today, continue to trend. he received mucomyst iv multifactorial as discussed previously continue to trend lft's, when stable probably he can be moved to psych facility- hopefully soon (2) Polysubstance overdose: Qualifiers: Encounter type: initial encounter Injury intent: intentional self-harm Qualified Code(s): T50.902A - Poisoning by unspecified drugs, medicaments and biological substances, intentional self-harm, initial encounter Code(s): T50.901A - Poisoning by unspecified drugs, medicaments and biological substances, accidental (unintentional), initial encounter Status: Acute (3) Hepatitis C antibody positive in blood: Code(s): R76.8 - Other specified abnormal immunological findings in serum Status: Acute Assessment and Plan: pending hcv rna (4) Suicide attempt: Code(s): T14.91XA - Suicide attempt, initial encounter Status: Acute (5) Transaminasemia: Code(s): R74.0 - Nonspecific elevation of levels of transaminase and lactic acid dehydrogenase [LDH] Status: Acute Subjective Date/time seen: 08/24/19 14:44 Interval history: no changes, good appetite, he is comfortable Review of Systems Review of Systems: All systems reviewed & are unremarkable except as noted in HPI and below Exam Const: General: comfortable and no acute distress HENMT: General nose exam: Normal nares present Eyes: General: appearance normal, both eyes and all related structures Neck: Neck: no JVD Resp: Auscultation: clear to auscultation bilaterally Cardio: Rate: regular rate Rhythm: regular rhythm GI: Inspection: non-distended GI Palp: Yes Soft to palpation Skin: General skin exam: normal color Neuro: General: gait normal Speech: normal speech Extrem: General: normal to inspection Psych: Mental Status: mental status grossly normal Objective Data Vital Signs Vital Signs: Vital Signs - 24 hr 08/23/19 16:00 08/24/19 00:00 08/24/19 08:00 Temperature 97.3 F L 98.1 F Pulse Rate 81 84 81 Respiratory Rate 16 20 14 Blood Pressure 112/76 122/84 122/76 Pulse Oximetry 99 99 92 Intake/Output Intake/Output: Intake & Output 08/21/19 08/22/19 08/23/19 08/24/19 23:59 23:59 23:59 23:59 Intake Total 910 1010 1320 1270 Output Total 600 500 Balance 393 671 1951 770 Meds/Results Medications: Active Medications Generic Name Dose Route Start Last Admin Trade Name Ederq PRN Reason Stop Dose Admin Lidocaine 1 patch 08/22/19 09:40 08/24/19 10:19 Lidoderm TRANSDERM 1 patch DAILY RICHARD Administration Radiology Results: ITS Impressions Upper Quadrant Ultrasound 08/18/19 19:21 IMPRESSION: 1. Normal sonographic study of the gallbladder. Labs Labs: Laboratory Results - last 24 hr 08/21/19 08/21/19 08/21/19 11:44 11:44 11:44 Sodium Potassium Chloride Carbon Dioxide BUN Creatinine Estim Creat Clear Calc Estimated GFR Glucose Calcium Total Bilirubin AST ALT Alkaline Phosphatase Total Protein Albumin Ceruloplasmin 28 ROXANNE Screen Negative Mitochondria M2 IgG Ab <=20.0 Actin IgG Antibody <20 08/24/19 04:20 Sodium 140 Potassium 4.0 Chloride 105 Carbon Dioxide 28 BUN 9 Creatinine 0.60 L Estim Creat Clear Calc 156 Estimated GFR > 60 Glucose 88 Calcium 8.9 Total Bilirubin 2.1 H AST 995 H ALT 1603 H Alkaline Phosphatase 184 H Total Protein 7.0 Albumin 3.9 Ceruloplasmin ROXANNE Screen Mitochondria M2 IgG Ab Actin IgG Antibody
[2019-08-24 16:00] VITALS: BP 98/69; PULSE 98; RESP 15; TEMP 36.9; O2SAT 100
[2019-08-24] MEDS: KETOROLAC 30 MG/ML VIAL (*BKC) IV PUSH (20:32)
[2019-08-24 23:50] VITALS: BP 97/66; PULSE 84; RESP 22; TEMP 36.6; O2SAT 100
[2019-08-25] MEDS: KETOROLAC 30 MG/ML VIAL (*BKC) IV PUSH (01:52)
[2019-08-25 05:13] LABS: Albumin Level 4.2 g/dL (3.5-5.1); Alkaline Phosphatase 190 U/L (38-126); Bilirubin,Total 3.1 mg/dL (0.2-1.3); Blood Urea Nitrogen 12 mg/dL (9-20); Calcium 9.3 mg/dL (8.4-10.2); Carbon Dioxide 32 mmol/L (22-30); Chloride 102 mmol/L (98-107); Estimated CRCL calculation 120 ml/min; Estimated Glomerular Filt Rate > 60; Glucose 106 mg/dL (75-110); Potassium 4.4 mmol/L (3.4-5.0); Sodium 139 mmol/L (137-145)
[2019-08-25 05:22] LABS: Alanine Aminotransferase 1832 U/L (4-50); Aspartate Amino Transferase 1183 U/L (17-59)
[2019-08-25 08:00] VITALS: BP 107/74; PULSE 87; RESP 16; TEMP 36.7; O2SAT 100
--- NOTE | 2019-08-25 08:40 | PCDIET ---
Weekly nutritional screen. Patient is tolerating current diet with adequate intake. No weight loss reported. No nutritional needs at this time.
--- NOTE | 2019-08-25 08:53 | PM.IMPN ---
Progress Note: A&P Assessment and Plan (1) Intentional overdose of drug in tablet form: Code(s): T50.902A - Poisoning by unspecified drugs, medicaments and biological substances, intentional self-harm, initial encounter Status: Acute Assessment and Plan: Patient admits to taking at least 20 tablets of gabapentin 600mg and dose unknown of hydrocodone/acetaminophen and zolpidem. Treated x3 days with acetylcysteine for possible acetaminophen overdose given his elevated liver enzymes although acetaminophen level < 10 x 2. Continues to remain hemodynamically stable. LFTs as noted below. I did speak with Dr. Inman today who does feel patient is medically stable from GI standpoint for crisis evaluation. He is otherwise stable for crisis evaluation with care coordination notified. Await results of crisis evaluation but anticipate patient will need some sort of psychiatric care. (2) Suicide gesture: Qualifiers: Encounter type: initial encounter Qualified Code(s): X83.8XXA - Intentional self-harm by other specified means, initial encounter Code(s): X83.8XXA - Intentional self-harm by other specified means, initial encounter Status: Acute Assessment and Plan: Patient with history of suicidal ideation but this is his 1st suicide attempt. Will continue suicide precautions. Sitter remains in room. Plan for crisis evaluation as noted above. (3) Major depression: Qualifiers: Major depression recurrence: unspecified whether recurrent Active/Remission status: currently active Major depression episode severity: severe Psychotic features: without psychotic features Qualified Code(s): F32.2 - Major depressive disorder, single episode, severe without psychotic features Code(s): F32.9 - Major depressive disorder, single episode, unspecified Status: Acute Assessment and Plan: Patient with major depressive disorder not currently being treated. Multiple stressors. Plan for crisis evaluation with some sort of psychiatric care as noted above. (4) Transaminasemia: Code(s): R74.0 - Nonspecific elevation of levels of transaminase and lactic acid dehydrogenase [LDH] Status: Acute Assessment and Plan: Appreciate help from GI. Discussed with Dr. Inman this morning. LFTs have been increasing since 08/22/2019. [place] to be related to the medications as well as OTC products he has taken. In addition to overdose, patient does use OTC Kratom as well as monster drinks. Additional workup for other sources of elevated LFT cheese with hepatitis C antibody screen positive with HCV RNA results still pending at this time. Other tests are negative. RUQ ultrasound normal. Total bilirubin is 3.1 today with AST 1183 and ALT 1832. Last INR normal on 08/21/2019 and will check PT/INR as well as PTT today. Patient is otherwise clinically stable. Per my conversation with Dr. Inman today, LFTs will most likely remain elevated for quite some time. Can continue to follow LFTs as outpatient as he is clinically stable and no benefit to additional imaging or referral to hepatobiliary specialist at this time. Dr. Inman does advised me he feels patient is medically stable for crisis evaluation at this point. (5) Hepatitis C antibody positive in blood: Code(s): R76.8 - Other specified abnormal immunological findings in serum Status: Acute Assessment and Plan: Hepatitis C antibody reactive with HCV RNA still pending as noted above. LFTs as noted above. (6) Chronic low back pain: Qualifiers: Back pain laterality: unspecified Sciatica presence: unspecified whether sciatica present Qualified Code(s): M54.5 - Low back pain; G89.29 - Other chronic pain Code(s): M54.5 - Low back pain; G89.29 - Other chronic pain Status: Acute Assessment and Plan: Known chronic issue with previous back surgery. With overdose and elevated LFTs, patient
[2019-08-25] MEDS: LIDOCAINE 5% PATCH 1 PATCH TRANSDERM (09:40)
[2019-08-25 10:12] LABS: Partial Thromboplastin Time 30.2 SECONDS (22.3-36.8)
--- NOTE | 2019-08-25 20:59 | PM.DS ---
DS: Admitting Diagnosis Admitting Diagnosis Admitting Diagnosis: Poisoning by unspecified drugs, medicaments and biological substances, intentional self-harm, initial encounter DS: Discharge Diagnosis Discharge Diagnosis (1) Intentional overdose of drug in tablet form: Code(s): T50.902A - Poisoning by unspecified drugs, medicaments and biological substances, intentional self-harm, initial encounter Status: Acute (2) Suicide gesture: Qualifiers: Encounter type: initial encounter Qualified Code(s): X83.8XXA - Intentional self-harm by other specified means, initial encounter Code(s): X83.8XXA - Intentional self-harm by other specified means, initial encounter Status: Acute (3) Major depression: Qualifiers: Active/Remission status: currently active Major depression episode severity: severe Major depression recurrence: unspecified whether recurrent Psychotic features: without psychotic features Qualified Code(s): F32.2 - Major depressive disorder, single episode, severe without psychotic features Code(s): F32.9 - Major depressive disorder, single episode, unspecified Status: Acute (4) Transaminasemia: Code(s): R74.0 - Nonspecific elevation of levels of transaminase and lactic acid dehydrogenase [LDH] Status: Acute (5) Hepatitis C antibody positive in blood: Code(s): R76.8 - Other specified abnormal immunological findings in serum Status: Acute (6) Chronic low back pain: Qualifiers: Back pain laterality: unspecified Sciatica presence: unspecified whether sciatica present Qualified Code(s): M54.5 - Low back pain; G89.29 - Other chronic pain Code(s): M54.5 - Low back pain; G89.29 - Other chronic pain Status: Acute (7) Pain, dental: Code(s): K08.89 - Other specified disorders of teeth and supporting structures Status: Acute DS: Summary Hospital Course Reason for hospitalization: Intentional overdose. Hospital Course: Date of Service of Discharge: August 25, 2019. History of Present Illness: Rambo Worley is a 44-year-old male with chronic low back pain who presented to the emergency department earlier today via EMS from home for evaluation of an intentional polysubstance overdose. Patient has had multiple stressors recently as he is going through a difficult divorce. His estranged has not allowed him to see there to children aged 5 and 9 years old. Throughout the morning on the day of admission, he admitted to taking at least 20 tablets of 600 mg gabapentin, unknown amount of hydrocodone acetaminophen and zolpidem. He also admits to taking the medication intentionally harm himself. He has been having thoughts of suicide recently due to his stressors. He additionally suffers from chronic back pain with multiple surgeries over the past 4 years. He is now disabled due to his back condition with subsequent depression. He does complain of headache over the past several days as well as insomnia. No fever, chills or sweats. No shortness of breath. No chest pain. No abdominal pain. In the emergency room, acetaminophen levels were negative but he was noted to have elevated LFTs. No other acute issues. Given his intentional overdose, gas meter repairer air hospitalist were contacted. Patient was admitted to ICU for further evaluation and treatment. Course in Hospital: Patient was initially admitted to the ICU with gas meter repairer consult as well as suicide precautions in place. He did have a sitter in his room throughout his stay. With medication taken, he did receive Mucomyst x3 days. Patient's mental status was monitored. He was not started on any antidepressants as he would eventually need psychiatric evaluation as well as elevated LFTs present. Patient was very frustrated while remaining in the ICU as he wished to go home. By the end of his stay, patient's mood did actually improve and he was much more cooperative muc
== END 2019-08-25 11:25 | disposition home or self-care (01) | DRG 817 ==
LOC: ANHED 17:19 → ANHICU 17:34
PROVIDERS: Internal Medicine; Internal Medicine Gastroenterology; Physician Assistant; Admitting Provider Internal Medicine; Emergency Provider Emergency Medicine; PCP Family Medicine; Visit Provider Hospitalist
DX: T42.6X2A Poisoning by other antiepileptic and sedative-hypnotic drugs, intentional self-harm, initial encounter (principal); T40.2X2A Poisoning by other opioids, intentional self-harm, initial encounter; Y92.59 Other trade areas as the place of occurrence of the external cause; F32.2 Major depressive disorder, single episode, severe without psychotic features; R74.0 Nonspecific elevation of levels of transaminase and lactic acid dehydrogenase [LDH]; R76.8 Other specified abnormal immunological findings in serum; M54.5 Low back pain; G89.29 Other chronic pain; K08.89 Other specified disorders of teeth and supporting structures; Z63.5 Disruption of family by separation and divorce
CPT/HCPCS: 36415; 51701; 76705; 80053; 80074; 80307; 81001; 82103; 82140; 82390; 82550; 82728; 83516; 83520; 83540; 83550; 84443; 85025; 85027; 85610; 85730; 86038; 86140; 86644; 86645; 86703; 86704; 86706; 87522; 93005; 96361; 96365; 96366; 99285; A9270; G0378; G0432; J0132; J1885; J7060; J7070; J7120